=== PATIENT | female | born 2000 | race Two or more races ===

== ENCOUNTER 2023-06-01 13:28 | Outpatient (REF) | payer OTHER, SELFPAY ==
--- NOTE | ~2023-06-01 | US_ITS ---
EXAMINATION: US THYROID CLINICAL INFORMATION: Pain. Palpable abnormality. COMPARISON: None available. TECHNIQUE: Linear transducer grayscale and color Doppler examination with attention to the region of the thyroid. FINDINGS: SIZE: Measurements of the thyroid lobes and nodules are given in sagittal, anteroposterior and transverse dimensions respectively. Right Thyroid Lobe: 4.1 x 1.0 x 1.7 cm, volume 3.6 mL. Parenchyma: The gland echotexture is homogeneous. Thyroid vascularity is normal. Left Thyroid Lobe: 3.6 x 0.8 x 1.2 cm, volume 1.8 mL. Parenchyma: The gland echotexture is homogeneous. Thyroid vascularity is normal. Isthmus: 0.3 cm in maximum AP dimension. No thyroid nodule. NODES: Elongated lymph node measuring 0.7 cm in maximum short axis dimension with preserved internal architecture along the left carotid artery. US/US thyroid IMPRESSION: No suspicious abnormality. Elongated morphologically normal lymph node along the left carotid artery. Correlate whether this corresponds to the clinically palpable abnormality.
== END 2023-06-01 13:29 | disposition home or self-care (01) ==
LOC: HO.UMASIMG 13:28
PROVIDERS: Visit Provider Internal Medicine
DX: E07.89 Other specified disorders of thyroid (principal); R07.0 Pain in throat
CPT/HCPCS: 76536